=== PATIENT | female | born 1940 | race Native Hawaiian/Other Pacific Islander ===

== ENCOUNTER 2019-12-23 12:52 | Emergency (ER) | payer SELFPAY ==
[~2019-12-23] VITALS: Ht 180.3 cm; Wt 85.3 kg
[~2019-12-23 12:52] MED LIST: Acetaminophen-1 EAC1 PO; IBUP600 PO; Robaxin-750750 MG PO
[2019-12-23] MEDS ORDERED: COLCHICINE0.6 MG PO (13:39)
[2019-12-23] MEDS ORDERED: Norco 5-325 Ta1 EACH PO (13:39)
[2019-12-23] MEDS ORDERED: Indomethacin50 MG PO (13:39)
== END 2019-12-23 13:48 | disposition home or self-care (01) ==
LOC: ER 12:52
DX: M10.9 Gout, unspecified (principal); I10 Essential (primary) hypertension; Z79.899 Other long term (current) drug therapy
CPT/HCPCS: 99283

== ENCOUNTER → 2020-07-18 | Outpatient (CLI) | payer SELFPAY ==
[~2020-07-18] MED LIST changes: +COLCHICINE0.6 MG PO; +Indomethacin50 MG PO; +Norco 5-325 Ta1 EACH PO
[2020-07-18 17:46] LABS: Appearance, Urine Clear (Clear); Bilirubin, Urine Neg (Neg); Blood, Urine Neg (Neg); Color, Urine Yellow (P-Yellow); Glucose Qualitative, Urine Neg (Neg); Ketones, Urine Neg (Neg); Leukocyte Esterase, Urine 2+ (Neg); Nitrite, Urine Neg (Neg); Protein, Urine Neg (Neg); Urobilinogen, Urine NORM (Normal)
[2020-07-18 18:23] LABS: Bacteria Rare /hpf; Red Blood Cells, Urine Not Seen /hpf (0-2); Squamous Epithelial Cells Not Seen /hpf (Few)
== END ==
LOC: LAB SRC 15:45
PROVIDERS: Nurse Practitioner Family
DX: N39.0 Urinary tract infection, site not specified (principal)
CPT/HCPCS: 81001; 87086

== ENCOUNTER → 2021-12-13 | Outpatient (CLI) | payer MEDICARE | END | disposition home or self-care (01) | LOC: LAB SHORT 17:08 → LAB 17:08 | DX: N30.00 Acute cystitis without hematuria (principal) | CPT/HCPCS: 87077; 87086; 87186 ==

== ENCOUNTER → 2022-01-22 | Outpatient (CLI) | payer MEDICARE | END | disposition home or self-care (01) | LOC: LAB 11:15 → LAB SHORT 11:15 | DX: R35.0 Frequency of micturition (principal) | CPT/HCPCS: 87086 ==

== ENCOUNTER → 2022-04-06 | Outpatient (CLI) | payer MEDICARE ==
[~2022-04-06] MED LIST changes: +PRED20; +SULFAMETHOXAZO1 EAC1; +TRAZ100; +TRAZODONE 100 MG TAB
== END | disposition home or self-care (01) ==
LOC: LAB SHORT 16:30 → LAB 16:30
DX: N39.0 Urinary tract infection, site not specified (principal)
CPT/HCPCS: 87086

== ENCOUNTER → 2023-08-07 | Outpatient (CLI) | payer MEDICARE | LOC: LAB SHORT 15:45 → LAB 15:45 | DX: R35.0 Frequency of micturition (principal) | CPT/HCPCS: 87077; 87086; 87186 ==